=== PATIENT | female | born 1995 | race Two or more races ===

== ENCOUNTER 2019-08-19 19:51 | Emergency (ER) | payer MEDICAID ==
--- NOTE | 2019-08-19 20:07 | EDM.PDOC ---
ED HPI GENERAL MEDICAL PROBLEM - General Chief Complaint: Lower Extremity Injury/Pain Stated Complaint: RIGHT ANKLE INJURY Time Seen by Provider: 08/19/19 19:52 Source of Information: Reports: Patient History Limitations: Reports: No Limitations - History of Present Illness INITIAL COMMENTS - FREE TEXT/NARRATIVE: HISTORY AND PHYSICAL: History of present illness: Patient is a 24-year-old female who presents to the emergency room with complaints of right ankle pain. She was states she was walking down hill when she felt her ankle "give out". She states since the injury she has not been able to weight-bear or ambulate. Denies any numbness, tingling or saddle paresthesia. Denies any weakness of the extremity. Denies any other extremity involvement. Offers no systemic complaints. Review of systems: As per history of present illness and below otherwise all systems reviewed and negative. Past medical history: As per history of present illness and as reviewed below otherwise noncontributory. Surgical history: As per history of present illness and as reviewed below otherwise noncontributory. Social history: See social history for further information Family history: As per history of present illness and as reviewed below otherwise noncontributory. Physical exam: General: Well-developed and well-nourished 24-year-old female. Alert and oriented. Nontoxic-appearing and in no acute distress. HEENT: Atraumatic, normocephalic, pupils equal and reactive bilaterally, negative for conjunctival pallor or scleral icterus, mucous membranes moist, trachea midline. No drooling or trismus noted. No meningeal signs. No hot potato voice noted. Lungs: Clear to auscultation, breath sounds equal bilaterally. Heart: S1S2, regular rate and rhythm without overt murmur Abdomen: Soft, nondistended, nontender. Skin: Intact, warm, dry. No lesions or rashes noted. Extremities: Pain with palpation of the medial and lateral malleolus. Soft tissue swelling noted to the medial ankleMoves all extremities per self without difficulty or deficits, negative for cords or calf pain. Neurovascular unremarkable. Neuro: Awake, alert, oriented. Cranial nerves II through XII unremarkable. Cerebellum unremarkable. Motor and sensory unremarkable throughout. Exam nonfocal. Notes: X-ray shows a trimalleolar fracture with an unstable ankle mortise. Mildly displaced fracture of the fibula. I did discuss x-ray findings and patient with Dr. Ulrich, Ortho on-call. He would like her placed in splint and for the patient to be seen tomorrow in his clinic. I did give this information to the patient. A posterior fiberglass splint was placed so patient could be non- weightbearing for the right lower extremity fracture. We discussed medication and supportive care measures were reviewed and discussed. Voices understanding and is agreeable to plan of care. Denies any further questions or concerns at this time. Diagnostics: X-ray Therapeutics: CAM walker boot and crutches Prescription: [place] Impression: Trimalleolar fracture, right Fibular fracture, right Plan: 1. Rest, ice, elevate the extremity as able. Keep the posterior mold on and do not remove until you follow-up with the orthopedic provider. Please continue to be nonweightbearing and use your crutches when needing to ambulate. 2. Alternate Tylenol and ibuprofen as needed. You can use the [place] for moderate to severe pain. This medication may cause drowsiness so do not take it while driving or needing to be doing outside of the house. 3. Dr Ulrich, orthopedics, would like you to call his office tomorrow to set up an appointment. 4. Return to the ED as needed and as discussed. Definitive disposition and diagnosis as appropriate pending reevaluation and review of above. right ankle Pain Score (Numeric/FACES): 8 - Related Data Allergies Allergy/AdvReac Type Severity Reaction Status Date / Time No Known Allergies Allergy Verified 08/19/19 20:02 Home Meds: Home Meds medroxyPROGESTERone [Depo-Provera Contraceptive] 150 mg IM ONETIME 08/19/19 [ History] Review of Systems - Review of Systems Review Of Systems: Comprehensive ROS is negative, except as noted in HPI. ED EXAM, GENERAL - Physical Exam Exam: See Below (See dictation) Course - Vital Signs Last Recorded V/S: Last Vital Signs Temp 98 F 08/19/19 20:00 Pulse 78 08/19/19 20:00 Resp 18 08/19/19 20:00 BP 136/93 H 08/19/19 20:00 Pulse Ox 98 08/19/19 20:00 - Orders/Labs/Meds Orders: Active Orders 24 hr Category Date Time Status DME for Discharge [COMM] Stat Oth 08/19/19 20:15 Ordered Meds: Medications Discontinued Medications Generic Name Dose Route Start Last Admin Trade Name David PRN Reason Stop Dose Admin Hydrocodone Bitart/Acetaminophen 1 tab 08/19/19 20:15 08/19/19 20:26 [place] 325-5 Mg PO 08/19/19 20:16 1 tab ONETIME ONE Administration Departure - Departure Time of Disposition: 20:38 Disposition: Home, Self-Care 01 Clinical Impression: Trimalleolar fracture of ankle, closed Qualifiers: Encounter type: initial encounter Laterality: right Qualified Code(s): S82.851A - Displaced trimalleolar fracture of right lower leg, initial encounter for closed fracture Fibula fracture Qualifiers: Encounter type: initial encounter Fibula location: distal Fracture type: closed Fracture morphology: other fracture Laterality: right Qualified Code(s): S82.831A - Other fracture of upper and lower end of right fibula, initial encounter for closed fracture - Discharge Information Instructions: Ankle Fracture, [id number] Forms: ED Department Discharge Additional Instructions: The following information is given to patients seen in the emergency department who are being discharged to home. This information is to outline your options for follow-up care. We provide all patients seen in our emergency department with a follow-up referral. The need for follow-up, as well as the timing and circumstances, are variable depending upon the specifics of your emergency department visit. If you don't have a primary care physician on staff, we will provide you with a referral. We always advise you to contact your personal physician following an emergency department visit to inform them of the circumstance of the visit and for follow-up with them and/or the need for any referrals to a consulting specialist. The emergency department will also refer you to a specialist when appropriate. This referral assures that you have the opportunity for follow-up care with a specialist. All of these measure are taken in an effort to provide you with optimal care, which includes your follow-up. Under all circumstances we always encourage you to contact your private physician who remains a resource for coordinating your care. When calling for follow-up care, please make the office aware that this follow-up is from your recent emergency room visit. If for any reason you are refused follow-up, please contact the [facility] Emergency Department at and asked to speak to the emergency department charge nurse. JORGE [facility] Professional [facility] [address] [place] [address], [address] [place] [address] 1. Rest, ice, elevate the extremity as able. Keep the posterior mold on and do not remove until you follow-up with the orthopedic provider. Please continue to be nonweightbearing and use your crutches when needing to ambulate. 2. Alternate Tylenol and ibuprofen as needed. You can use the [place] for moderate to severe pain. This medication may cause drowsiness so do not take it while driving or needing to be doing outside of the house. 3. Dr Ulrich, orthopedics, would like you to call his office tomorrow to set up an appointment. Call at 8am for appointment. 4. Return to the ED as needed and as discussed. Sepsis Event Note - Focused Exam Vital Signs: Vital Signs Temp Pulse Resp BP Pulse Ox 08/19/19 20:00 98 F 78 18 136/93 H 98 Date Exam was Performed: 08/19/19 Time Exam was Performed: 20:26 - My Orders Last 24 Hours: My Active Orders 08/19/19 20:15 DME for Discharge [COMM] Stat - Assessment/Plan Last 24 Hours: My Active Orders 08/19/19 20:15 DME for Discharge [COMM] Stat
[2019-08-19] MEDS ORDERED: Acetaminophen/HYDROcodone 325-5 MG Tab PO ONE (20:15)
--- NOTE | 2019-08-19 20:24 | CR ---
Ankle: 3 views the ankle were obtained. Displaced medial malleolar fracture is noted. Mildly displaced fracture with slight angulation is noted within the distal one third diaphysis of the fibula. Fibular fracture is slightly comminuted. Posterior malleolar fracture is also noted. Ankle mortise is unstable with shifting of the tibia in a medial direction. Impression: 1. Trimalleolar fracture with unstable ankle mortise. Diagnostic code #3 Study was dictated in MDT
== END 2019-08-19 21:15 | disposition home or self-care (01) ==
LOC: MW.ED 19:51
DX: S82.851A Displaced trimalleolar fracture of right lower leg, initial encounter for closed fracture (principal); S82.831A Other fracture of upper and lower end of right fibula, initial encounter for closed fracture; X50.1XXA Overexertion from prolonged static or awkward postures, initial encounter
CPT/HCPCS: 29515; 73610; 99283; A9270

== ENCOUNTER 2019-08-20 15:12 | Day surgery (SDC) | payer MEDICAID ==
[~2019-08-20 15:12] MED LIST: 50% Dextrose in Water 50 ML Syringe IVPUSH PRN; Albuterol 0.083% 2.5 MG/3 ML Neb Soln NEB PRN; Atropine 0.1 MG/ML 10 ML Syringe IVPUSH PRN; EPINEPHrine 1:10,000 1 MG/10 ML Syringe IVPUSH PRN; Lactated Ringers 1,000 ML IV SCH; Lidocaine 2% 5 ML SDV ONE; Midazolam 1 MG/ML 2 ML SDV ONE; Naloxone 0.4 MG/ML Syringe IVPUSH PRN; Ondansetron 4 MG/2 ML SDV ONE; Propofol 200 MG/20 ML SDV ONE; Sodium Chloride 0.9% 10 ML SDV IV PRN; Sodium Chloride 0.9% 10 ML Syringe FLUSH PRN; Sodium Chloride 0.9% 2.5 ML Syringe FLUSH PRN; ceFAZolin 2 GM in Premix Bag 1 BAG IV SCH; fentaNYL 250 MCG/5 ML SDV ONE
[2019-08-20] MEDS ORDERED: Bupivacaine 0.5%/EPINEPHrine 1:200,000 10 ML SDV ONE (15:14)
--- NOTE | 2019-08-20 15:36 | PCM.PREANE ---
Preanesthetic Assessment - Anesthesia/Transfusion/Family Hx Anesthesia History: No Prior Anesthesia Family History of Anesthesia Reaction: No Intubation History: Unknown - Review of Systems General: No Symptoms Pulmonary: No Symptoms Cardiovascular: No Symptoms Gastrointestinal: No Symptoms Neurological: No Symptoms Other: Reports: None - Physical Assessment ASA Class: 1E Mental Status: Alert & Oriented x3 Airway Class: Mallampati = 1 Dentition: Reports: Normal Dentition Thyro-Mental Finger Breadths: 3 Mouth Opening Finger Breadths: 3 ROM/Head Extension: Full Lungs: Clear to Auscultation, Normal Respiratory Effort Cardiovascular: Regular Rate, Regular Rhythm - Allergies Allergies/Adverse Reactions: Allergies Allergy/AdvReac Type Severity Reaction Status Date / Time No Known Allergies Allergy Verified 08/19/19 20:02 - Blood Blood Available: No - Anesthesia Plan Pre-Op Medication Ordered: None - Acknowledgements Anesthesia Type Planned: General Anesthesia Pt an Appropriate Candidate for the Planned Anesthesia: Yes Alternatives and Risks of Anesthesia Discussed w Pt/Guardian: Yes Pt/Guardian Understands and Agrees with Anesthesia Plan: Yes PreAnesthesia Questionnaire HEENT History: Reports: None Cardiovascular History: Reports: None Respiratory History: Reports: None Gastrointestinal History: Reports: None Genitourinary History: Reports: None BOILER WELDER History: Reports: None Musculoskeletal History: Reports: Fracture (rt. ankle at present time) Neurological History: Reports: None Psychiatric History: Reports: None Endocrine/Metabolic History: Reports: Obesity/BMI 30+ Hematologic History: Reports: None Immunologic History: Reports: None Oncologic (Cancer) History: Reports: None Dermatologic History: Reports: None - Infectious Disease History Infectious Disease History: Reports: None - Past Surgical History Head Surgeries/Procedures: Reports: None HEENT Surgical History: Reports: None Cardiovascular Surgical History: Reports: None Respiratory Surgical History: Reports: None GI Surgical History: Reports: None Female Surgical History: Reports: None Male Surgical History: Reports: None Endocrine Surgical History: Reports: None Neurological Surgical History: Reports: None Musculoskeletal Surgical History: Reports: None Oncologic Surgical History: Reports: None Dermatological Surgical History: Reports: None - HOME MEDS Home Medications: Home Meds medroxyPROGESTERone [Depo-Provera Contraceptive] 150 mg IM ONETIME 08/19/19 [ History] - CURRENT (IN HOUSE) MEDS Current Meds: Current Medications Albuterol (Proventil Neb Soln) 2.5 mg NEB ONETIME PRN PRN Reason: Wheezing Atropine Sulfate (Atropine 0.1 Mg/Ml) 0.5 mg IVPUSH ASDIRECTED PRN PRN Reason: Hypo-perfusion Atropine Sulfate (Atropine 0.1 Mg/Ml) 1 mg IVPUSH ASDIRECTED PRN PRN Reason: Hypo-Perfusion Dextrose/Water (Dextrose 50% In Water) 50 ml IVPUSH ASDIRECTED PRN PRN Reason: Hypoglycemia Epinephrine HCl (Epinephrine 1:10,000) 1 mg IVPUSH ASDIRECTED PRN PRN Reason: ACLS Guidelines Fentanyl (Sublimaze) 50 mcg IVPUSH Q5M PRN PRN Reason: Pain Cefazolin Sodium/Dextrose 2 gm (/ Premix) 50 mls @ 100 mls/hr IV ONCALL DELFINA Lactated Ringer's (Ringers, Lactated) 1,000 mls @ 125 mls/hr IV ASDIRECTED DELFINA Naloxone HCl (Narcan) 0.1 mg IVPUSH ASDIRECTED PRN PRN Reason: Respiratory Depression Sodium Chloride (Saline Flush) 10 ml FLUSH ASDIRECTED PRN PRN Reason: Keep Vein Open Sodium Chloride (Saline Flush) 2.5 ml FLUSH ASDIRECTED PRN PRN Reason: Keep Vein Open Sodium Chloride (Normal Saline) 10 ml IV ASDIRECTED PRN PRN Reason: IV Use Discontinued Medications Bupivacaine HCl/Epinephrine Bitart (Marcaine 0.5%/Epinephrine 1:200,000) Confirm Administered Dose 20 ml .ROUTE .STK-MED ONE Stop: 08/20/19 15:15 Fentanyl (Sublimaze) Confirm Administered Dose 250 mcg .ROUTE .STK-MED ONE Stop: 08/20/19 15:13 Lidocaine (Xylocaine-Mpf 2%) Confirm Administered Dose 5 ml .ROUTE .STK-MED ONE Stop: 08/20/19 15:13 Midazolam HCl (Versed 1 Mg/Ml) Confirm Administered Dose 2 mg .ROUTE .STK-MED ONE Stop: 08/20/19 15:13 Ondansetron HCl (Zofran) Confirm Administered Dose 4 mg .ROUTE .STK-MED ONE Stop: 08/20/19 15:13 Propofol (Diprivan 20 Ml) Confirm Administered Dose 200 mg .ROUTE .STK-MED ONE Stop: 08/20/19 15:13
[2019-08-20] MEDS ORDERED: Ketamine 500 mg/10 ML MDV ONE (15:53)
[2019-08-20] MEDS ORDERED: ceFAZolin 1 GM Vial ONE (16:00)
[2019-08-20] MEDS ORDERED: Sodium Chloride 0.9% 20 ML ONE (16:00)
[2019-08-20] MEDS ORDERED: HYDROmorphone 2 MG/ML Syringe ONE (16:09)
[2019-08-20] MEDS ORDERED: ePHEDrine 50 MG/ML SDV ONE (16:27)
[2019-08-20] MEDS ORDERED: fentaNYL 100 MCG/2 ML SDV ONE (16:52)
--- NOTE | 2019-08-20 17:23 | PCM.OPNOTE ---
- General Post-Op/Procedure Note Date of Surgery/Procedure: 08/20/19 Operative Procedure(s): orif right bimalleolar ankle fracture Pre Op Diagnosis: r bimall ankle fx Post-Op Diagnosis: Same Anesthesia Technique: General ET Tube Primary Surgeon: Tez Ulrich EBL in mLs: 25 Complications: None Condition: Good
--- NOTE | 2019-08-20 17:51 | PCM.POSTAN ---
POST ANESTHESIA ASSESSMENT - MENTAL STATUS Mental Status: Alert, Oriented - VITAL SIGNS Vital Signs: Last Vital Signs Temp 36.8 C 08/20/19 17:16 Pulse 112 H 08/20/19 17:46 Resp 19 08/20/19 17:46 BP 118/101 H 08/20/19 17:46 Pulse Ox 95 08/20/19 17:46 - RESPIRATORY Respiratory Status: Respiratory Rate WNL, Airway Patent, O2 Saturation Stable - CARDIOVASCULAR CV Status: Pulse Rate WNL, Blood Pressure Stable - GASTROINTESTINAL GI Status: No Symptoms - PAIN Pain Score: 0 - POST OP HYDRATION Hydration Status: Adequate & Stable - OBSERVATIONS Free Text/Narrative:: No anesthesia problems
[2019-08-20] MEDS ORDERED: Ondansetron 4 MG/2 ML SDV IVPUSH ONE (18:00)
[2019-08-20] MEDS: fentaNYL 100 MCG/2 ML SDV IVPUSH PRN ×2 (18:04→18:10)
[2019-08-20] MEDS ORDERED: Labetalol 100 MG/20 ML MDV ONE (18:06)
[2019-08-20] MEDS ORDERED: Promethazine 25 MG/ML SDV ONE (18:17)
[2019-08-20] MEDS ORDERED: Scopolamine 1.5 MG Transdermal Patch ONE (18:23)
[2019-08-20] MEDS ORDERED: Promethazine 25 MG/ML SDV IM ONE (18:27)
[2019-08-20] MEDS ORDERED: Scopolamine 1.5 MG Transdermal Patch TOP ONE (18:28)
--- NOTE | 2019-08-20 18:50 | OR ---
SURGEON: Tez Ulrich DATE OF PROCEDURE: 08/20/2019 PREOPERATIVE DIAGNOSIS: Right bimalleolar fracture, ankle, closed. POSTOPERATIVE DIAGNOSIS: Right bimalleolar fracture, ankle, closed. PROCEDURE: Open reduction and internal fixation, right bimalleolar ankle fracture. PRIMARY SURGEON: Tez Ulrich DO ANESTHESIA: General endotracheal intubation. FLUID: Lactated Ringer's solution. ESTIMATED BLOOD LOSS: 25 mL. COMPLICATIONS: None. SPECIMEN: None. DISCHARGE DISPOSITION: Stable to PACU. HISTORY AND INDICATIONS FOR THE PROCEDURE: The patient was seen preoperatively in the clinic. Yesterday, she had suffered a right bimalleolar ankle fracture. She was placed into a posterior splint and asked to follow up. We saw her today. Risks and goals of the procedure were explained to the patient. Informed consent was obtained. Preoperative imaging confirmed the above-mentioned diagnosis. DETAILS OF PROCEDURE: The patient was seen preoperatively by myself and the Anesthesia staff in the preoperative holding area where the operative site was marked. She was brought to the operative suite by Anesthesia staff where general anesthesia was administered. All extremities were found to be well padded. A well-padded tourniquet was placed on the right thigh. The right lower extremity was then prepped and draped in a sterile manner. Time-out was called identifying the correct patient, the correct procedure, the correct site, and that antibiotics had been given within appropriate period of time. The right lower extremity was exsanguinated. Tourniquet was raised to 250 mmHg and kept up for 53 minutes after closure. Lateral incision was first made over the fracture site. Bleeding was controlled with Bovie electrocautery during the case. The fracture was identified by blunt dissection. I did remove some soft tissue anteriorly from the distal fragment using a 15 blade. There was a butterfly fragment present and it was nearly transverse through the shafts preventing a good reduction as there was nothing to mata in. I applied a 6-hole plate and then used [place] retractors to hold it in place. I K-wired the plate also to hold it in place. I did two distal screws and then two proximal screws. I had drilled two different sets of holes in order to get this to sit right. I then drilled another proximal hole. I tried doing a third distal hole, but I could not do that, so we had four cortices distally and six proximally, which I thought was adequate fixation. We then christy our attention to the medial malleolus. This had been nicely reduced after reducing the lateral malleolus. I then percutaneously ran two K-wires through the medial malleolus anterior up through the distal tibia. I then overdrilled these and placed two 55 mm screws and hand tightened them. I removed the K-wires. We then took final films. I then closed the lateral incision with a #1 Stratafix followed by skin reji and then reji on the percutaneous medial malleolar side. We then used wet and dry's on the leg and then placed Betadine-soaked Adaptic, fluffs, and an Emmanuel wrap. The patient was allowed to awaken from general anesthesia and taken to the PACU in stable condition. [id number] / MODL /[id number]
--- NOTE | 2019-08-20 18:54 | PCM48HPAN ---
Post Anesthesia Note - EVALUATION WITHIN 48HRS OF ANESTHETIC Vital Signs in Normal Range: Yes Patient Participated in Evaluation: Yes Respiratory Function Stable: Yes Airway Patent: Yes Cardiovascular Function Stable: Yes Hydration Status Stable: Yes Pain Control Satisfactory: Yes Nausea and Vomiting Control Satisfactory: Yes Mental Status Recovered: Yes Vital Signs: Last Vital Signs Temp 36.8 C 08/20/19 17:16 Pulse 73 08/20/19 18:36 Resp 12 08/20/19 18:36 BP 141/99 H 08/20/19 18:36 Pulse Ox 93 L 08/20/19 18:36 - COMMENTS/OBSERVATIONS Free Text/Narrative:: No anesthesia problems
--- NOTE | 2019-08-20 19:23 | CR ---
Right ankle: 4 fluoroscopic spot views were obtained of the right ankle. Study obtained utilizing C-arm device. Comparison: Prior right ankle study of 08/19/19. Findings: Distal fibular shaft fracture is seen which shows reduction. Plate and screws affix the fibular fracture. Medial malleolar fracture shows evidence of 2 cannulated screws with reduction of the fracture. Posterior malleolar fracture is noted. Posterior malleolar fracture appears less displaced than seen on previous study. Ankle mortise has been returned to symmetric. No additional abnormality is seen. Fluoroscopy time: 24.5 seconds Impression: 1. Reduced fractures with orthopedic hardware as described above. Diagnostic code #2 Study was dictated in MDT
[2019-08-20] MEDS ORDERED: Acetaminophen/oxyCODONE 325-5 MG Tab PO ONE (20:30)
== END 2019-08-20 21:00 ==
LOC: MW.SDS 15:12 → MW.MS 19:07 → MW.SDS 21:00
PROVIDERS: ATTEND Orthopaedic Surgery
DX: S82.841A Displaced bimalleolar fracture of right lower leg, initial encounter for closed fracture (principal); W18.40XA Slipping, tripping and stumbling without falling, unspecified, initial encounter
CPT/HCPCS: 27814; 76000; 81025; A9270; C1713; J0690; J1170; J2001; J2250; J2405; J2550; J2704; J3010; J3490; J7120

== ENCOUNTER 2019-08-27 17:01 | Emergency (ER) | payer MEDICAID ==
--- NOTE | 2019-08-27 17:39 | EDM.PDOC ---
ED HPI GENERAL MEDICAL PROBLEM - General Chief Complaint: Genitourinary Problem Stated Complaint: POSSIBLE UTI Time Seen by Provider: 08/27/19 17:37 Source of Information: Reports: Patient History Limitations: Reports: No Limitations - History of Present Illness INITIAL COMMENTS - FREE TEXT/NARRATIVE: HISTORY AND PHYSICAL: History of present illness: Patient is a 24-year-old female presents to the ED for possible UTI. Patient states she started having pain and blood with urination this afternoon. She reports some lower abdominal discomfort. She denies fevers, chills, nausea, vomiting, diarrhea, back pain, vaginal discharge. Review of systems: As per history of present illness and below otherwise all systems reviewed and negative. Past medical history: As per history of present illness and as reviewed below otherwise noncontributory. Surgical history: As per history of present illness and as reviewed below otherwise noncontributory. Social history: No reported history of drug or alcohol abuse. Family history: As per history of present illness and as reviewed below otherwise noncontributory. Physical exam: General: Patient sitting comfortably in no acute distress and nontoxic appearing HEENT: Atraumatic, normocephalic, pupils reactive, negative for conjunctival pallor or scleral icterus, mucous membranes moist, throat clear, neck supple, nontender, trachea midline. No meningeal signs. Extremities: Atraumatic, negative for cords or calf pain. Neurovascular unremarkable. Neuro: Awake, alert, oriented. Cranial nerves II through XII unremarkable. Cerebellum unremarkable. Motor and sensory unremarkable throughout. Exam nonfocal. Notes: Diagnostics: UA Therapeutics: none Prescriptions: Macrobid Impression: UTI Plan: Drink plenty of fluids and take antibiotic as directed. Follow up with primary care provider Return to ED as needed as discussed Definitive disposition and diagnosis as appropriate pending reevaluation and review of above. 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 Musculoskeletal History: Reports: Fracture Other Musculoskeletal History: R trimaleolar fracture Neurological History: Reports: None Psychiatric History: Reports: None Endocrine/Metabolic History: Reports: Obesity/BMI 30+ Insulin Pump Model and Hands And Dial Inspector: N/A Hematologic History: Reports: None Immunologic History: Reports: None Oncologic (Cancer) History: Reports: None Dermatologic History: Reports: None - Infectious Disease History Infectious Disease History: Reports: None - Past Surgical History Head Surgeries/Procedures: Reports: None HEENT Surgical History: Reports: None Cardiovascular Surgical History: Reports: None Respiratory Surgical History: Reports: None GI Surgical History: Reports: None Female Surgical History: Reports: None Endocrine Surgical History: Reports: None Neurological Surgical History: Reports: None Musculoskeletal Surgical History: Reports: None Oncologic Surgical History: Reports: None Dermatological Surgical History: Reports: None Social & Family History - Family History Family Medical History: Noncontributory - Tobacco Use Smoking Status *Q: Never Smoker - Caffeine Use Caffeine Use: Reports: Coffee - Recreational Drug Use Recreational Drug Use: No ED ROS GENERAL - Review of Systems Review Of Systems: Comprehensive ROS is negative, except as noted in HPI. ED EXAM, RENAL/ - Physical Exam Exam: See Below (see dictation) Course - Vital Signs Last Recorded V/S: Last Vital Signs Temp 97.7 F 08/27/19 17:14 Pulse 108 H 08/27/19 17:14 Resp 18 08/27/19 17:14 BP 138/72 08/27/19 17:14 Pulse Ox 98 08/27/19 17:14 - Orders/Labs/Meds Orders: Active Orders 24 hr Category Date Time Status CULTURE URINE [RM] Stat Lab 08/27/19 17:12 Received Labs: Laboratory Tests 08/27/19 Range/Units 17:12 Urine Color YELLOW Urine Appearance SLT CLOUDY Urine pH 6.0 (5.0-8.0) Ur Specific [place] >= 1.030 (1.001-1.035) Urine Protein 30 H (NEGATIVE) mg/dL Urine Glucose (UA) NEGATIVE (NEGATIVE) mg/dL Urine Ketones 15 H (NEGATIVE) mg/dL Urine Occult Blood LARGE H (NEGATIVE) Urine Nitrite NEGATIVE (NEGATIVE) Urine Bilirubin NEGATIVE (NEGATIVE) Urine Urobilinogen 0.2 (<2.0) EU/dL Ur Leukocyte Esterase TRACE H (NEGATIVE) Urine RBC 0-4 (0-2/HPF) Urine WBC 4-8 (0-5/HPF) Ur Epithelial Cells FEW (NONE-FEW) Amorphous Sediment FEW (NEGATIVE) Urine Bacteria 1+ H (NEGATIVE) Urine Mucus FEW (NONE-MOD) Departure - Departure Time of Disposition: 18:19 Disposition: Home, Self-Care 01 Condition: Good Clinical Impression: UTI (urinary tract infection) - Discharge Information Forms: ED Department Discharge Care Plan Goals: The following information is given to patients seen in the emergency department who are being discharged to home. This information is to outline your options for follow-up care. We provide all patients seen in our emergency department with a follow-up referral. The need for follow-up, as well as the timing and circumstances, are variable depending upon the specifics of your emergency department visit. If you don't have a primary care physician on staff, we will provide you with a referral. We always advise you to contact your personal physician following an emergency department visit to inform them of the circumstance of the visit and for follow-up with them and/or the need for any referrals to a consulting specialist. The emergency department will also refer you to a specialist when appropriate. This referral assures that you have the opportunity for follow-up care with a specialist. All of these measure are taken in an effort to provide you with optimal care, which includes your follow-up. Under all circumstances we always encourage you to contact your private physician who remains a resource for coordinating your care. When calling for follow-up care, please make the office aware that this follow-up is from your recent emergency room visit. If for any reason you are refused follow-up, please contact the [facility] Emergency Department at and asked to speak to the emergency department charge nurse. [facility] [address] [place] [id number] [address] Drink plenty of fluids and take antibiotic as directed. Follow up with primary care provider Return to ED as needed as discussed Sepsis Event Note - Evaluation Sepsis Screening Result: No Definite Risk - Focused Exam Vital Signs: Vital Signs Temp Pulse Resp BP Pulse Ox 08/27/19 17:14 97.7 F 108 H 18 138/72 98 Date Exam was Performed: 08/27/19 Time Exam was Performed: 18:19 - My Orders Last 24 Hours: My Active Orders 08/27/19 17:12 CULTURE URINE [RM] Stat - Assessment/Plan Last 24 Hours: My Active Orders 08/27/19 17:12 CULTURE URINE [RM] Stat
== END 2019-08-27 18:29 | disposition home or self-care (01) ==
LOC: MW.ED 17:01
DX: N39.0 Urinary tract infection, site not specified (principal); E66.9 Obesity, unspecified; Z68.33 Body mass index [BMI] 33.0-33.9, adult
CPT/HCPCS: 81001; 87086; 99282; 99284

== ENCOUNTER 2019-10-11 13:05 | Emergency (ER) | payer MEDICAID ==
--- NOTE | 2019-10-11 13:30 | EDM.PDOC ---
ED HPI GENERAL MEDICAL PROBLEM - General Chief Complaint: Lower Extremity Injury/Pain Stated Complaint: BUMP ON SURGICAL SCAR Time Seen by Provider: 10/11/19 13:23 Source of Information: Reports: Patient History Limitations: Reports: No Limitations - History of Present Illness INITIAL COMMENTS - FREE TEXT/NARRATIVE: HISTORY AND PHYSICAL: History of present illness: Patient is a 24-year-old female who presents to the emergency room with concerns of possible infection/drainage from her incision site. Approximately 7 weeks ago she had right ankle surgery for fracture, does have a lateral incision along the right ankle. She has had no postoperative complications. Yesterday she noticed a small pustule in the center of her scar and states that her sock must have rubbed on it and "popped it". She does have some mild erythema at the site. She denies any new injury, trauma or falls. Patient denies any fever, chills, headache, change in vision, syncope or near syncope. Denies any chest pain, back pain, shortness of breath or cough. Denies any numbness, tingling or saddle paresthesia. Denies any GI or symptoms. Patient has been eating and drinking appropriately. Review of systems: As per history of present illness and below otherwise all systems reviewed and negative. Past medical history: As per history of present illness and as reviewed below otherwise noncontributory. Surgical history: As per history of present illness and as reviewed below otherwise noncontributory. Social history: See social history for further information Family history: As per history of present illness and as reviewed below otherwise noncontributory. Physical exam: General: Well-developed and well-nourished 24-year-old female. Alert and oriented. Nontoxic-appearing and in no acute distress. HEENT: Atraumatic, normocephalic, pupils equal and reactive bilaterally, negative for conjunctival pallor or scleral icterus, mucous membranes moist, TMs normal bilaterally, throat clear, neck supple, nontender, trachea midline. No drooling or trismus noted. No meningeal signs. No hot potato voice noted. Lungs: Clear to auscultation, breath sounds equal bilaterally, chest nontender. Heart: S1S2, regular rate and rhythm without overt murmur Skin: Well approximated linear scar to the right lateral ankle. Small area of erythema along the mid scar line without any fluctuance or induration. Slightly warm to the touch. Otherwise remaining skin is intact, warm, dry. No lesions or rashes noted. Extremities: Atraumatic, moves all extremities per self without difficulty or deficits, negative for cords or calf pain. Neurovascular unremarkable. Neuro: Awake, alert, oriented. Cranial nerves II through XII unremarkable. Cerebellum unremarkable. Motor and sensory unremarkable throughout. Exam nonfocal. Notes: The area in question is very superficial, do not have any concern of an abscess or cellulitis. We discussed what to monitor for at home along with what would prompt her to return to the emergency department. Will place her on a short course of antibiotic. Supportive care measures were reviewed and discussed. Voices understanding and is agreeable to plan of care. Denies any further questions or concerns at this time. Diagnostics: None Therapeutics: None Prescription: Keflex Impression: Localized skin infection Plan: 1. Keep the area clean and dry. Continue to monitor for signs of infection. Take the antibiotic as prescribed 2. Tylenol and/or ibuprofen as needed for pain management. 3. Please follow-up with your primary care provider in the next 1-2 days. Return to the ED as needed and as discussed. Definitive disposition and diagnosis as appropriate pending reevaluation and review of above. - Related Data Allergies Allergy/AdvReac Type Severity Reaction Status Date / Time No Known Allergies Allergy Verified 08/27/19 17:19 Home Meds: Home Meds cephALEXin [Keflex] 500 mg PO BID 5 Days #10 cap 10/11/19 [Rx] Past Medical History HEENT History: Reports: None Cardiovascular History: Reports: None Respiratory History: Reports: None Gastrointestinal History: Reports: None Genitourinary History: Reports: None TUBE BUFFER History: Reports: None Musculoskeletal History: Reports: Fracture Other Musculoskeletal History: R trimaleolar fracture Neurological History: Reports: None Psychiatric History: Reports: None Endocrine/Metabolic History: Reports: Obesity/BMI 30+ 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/A Hematologic History: Reports: None Immunologic History: Reports: None Oncologic (Cancer) History: Reports: None Dermatologic History: Reports: None - Infectious Disease History Infectious Disease History: Reports: None - Past Surgical History Head Surgeries/Procedures: Reports: None HEENT Surgical History: Reports: None Cardiovascular Surgical History: Reports: None Respiratory Surgical History: Reports: None GI Surgical History: Reports: None Female Surgical History: Reports: None Endocrine Surgical History: Reports: None Neurological Surgical History: Reports: None Musculoskeletal Surgical History: Reports: None Oncologic Surgical History: Reports: None Dermatological Surgical History: Reports: None Social & Family History - Family History Family Medical History: Noncontributory - Tobacco Use Smoking Status *Q: Never Smoker Second Hand Smoke Exposure: No - Caffeine Use Caffeine Use: Reports: None - Recreational Drug Use Recreational Drug Use: No Review of Systems - Review of Systems Review Of Systems: Comprehensive ROS is negative, except as noted in HPI. ED EXAM, GENERAL - Physical Exam Exam: See Below (See dictation) Course - Vital Signs Last Recorded V/S: Last Vital Signs Temp 97.7 F 10/11/19 13:12 Pulse 117 H 10/11/19 13:12 Resp 18 10/11/19 13:12 BP 151/83 H 10/11/19 13:12 Pulse Ox 99 10/11/19 13:12 Departure - Departure Time of Disposition: 13:29 Disposition: Home, Self-Care 01 Clinical Impression: Localized infection of skin - Discharge Information Prescriptions: cephALEXin [Keflex] 500 mg PO BID 5 Days #10 cap Instructions: Wound Care, Adult Referrals: PCP,None [Primary Care Provider] - Forms: ED Department Discharge Additional Instructions: The following information is given to patients seen in the emergency department who are being discharged to home. This information is to outline your options for follow-up care. We provide all patients seen in our emergency department with a follow-up referral. The need for follow-up, as well as the timing and circumstances, are variable depending upon the specifics of your emergency department visit. If you don't have a primary care physician on staff, we will provide you with a referral. We always advise you to contact your personal physician following an emergency department visit to inform them of the circumstance of the visit and for follow-up with them and/or the need for any referrals to a consulting specialist. The emergency department will also refer you to a specialist when appropriate. This referral assures that you have the opportunity for follow-up care with a specialist. All of these measure are taken in an effort to provide you with optimal care, which includes your follow-up. Under all circumstances we always encourage you to contact your private physician who remains a resource for coordinating your care. When calling for follow-up care, please make the office aware that this follow-up is from your recent emergency room visit. If for any reason you are refused follow-up, please contact the [facility] Emergency Department at and asked to speak to the emergency department charge nurse. [facility] [address] [place] [address] [address] 1. Keep the area clean and dry. Continue to monitor for signs of infection. Take the antibiotic as prescribed 2. Tylenol and/or ibuprofen as needed for pain management. 3. Please follow-up with your primary care provider in the next 1-2 days. Return to the ED as needed and as discussed. Sepsis Event Note - Evaluation Sepsis Screening Result: No Definite Risk - Focused Exam Vital Signs: Vital Signs Temp Pulse Resp BP Pulse Ox 10/11/19 13:12 97.7 F 117 H 18 151/83 H 99 Date Exam was Performed: 10/11/19 Time Exam was Performed: 13:30
== END 2019-10-11 13:44 | disposition home or self-care (01) ==
LOC: MW.ED 13:05
DX: L08.9 Local infection of the skin and subcutaneous tissue, unspecified (principal); E66.9 Obesity, unspecified; Z68.32 Body mass index [BMI] 32.0-32.9, adult; Z79.899 Other long term (current) drug therapy
CPT/HCPCS: 99282; 99283

== ENCOUNTER 2019-10-18 11:36 | Emergency (ER) | payer MEDICAID ==
[2019-10-18] MEDS ORDERED: Cephalexin 500 MG Cap PO ONE (11:59)
--- NOTE | 2019-10-18 12:04 | EDM.PDOC ---
ED HPI GENERAL MEDICAL PROBLEM - General Chief Complaint: Skin Complaint Stated Complaint: BLOOD AND PUS COMING OUT OF SCAR Time Seen by Provider: 10/18/19 11:41 - History of Present Illness INITIAL COMMENTS - FREE TEXT/NARRATIVE: History of present illness: 24-year-old female presenting with concern for possible infection at right lower ankle incision site. Had a bimalleolar ankle fracture with ORIF in August 2019. Had been doing well until 1 week ago when she noticed the lateral incision site opened up and started bleeding. She was seen here in the emergency department at that time and started on Keflex, which was prescribed for 5 days in which she completed, however today she noticed what she was concerned might be pus coming from the wound. She shows me a picture of what came out of the wound and it appears more consistent with serosanguineous drainage. She has not had any fevers nor any worsening of pain in the ankle or at the site of the incision. Review of systems: As per history of present illness and below otherwise all systems reviewed and negative. Past medical history: As per history of present illness and as reviewed below otherwise noncontributory. Surgical history: As per history of present illness and as reviewed below otherwise noncontributory. ORIF bimalleolar ankle fracture Social history: No reported history of drug or alcohol abuse. Family history: As per history of present illness and as reviewed below otherwise noncontributory. Physical exam: GEN: no acute distress, well appearing HEENT: Atraumatic, normocephalic, mucous membranes moist, Neck: supple, nontender, trachea midline. Lungs: No respiratory distress. Heart: RRR Abdomen: Soft, nondistended, nontender. Back: nontender Extremities: Atraumatic. Healing incision site with mild dehiscence at the right lateral ankle. Ankle nontender. Neurovascularly intact. Neuro: Awake, alert, oriented. Neuro Exam nonfocal. Skin: warm, dry, no lesions. In the lateral incision site, mid incision, there is an area of wound dehiscence less than 1 cm long which has some very mild serosanguineous drainage without signs of infection. However there is some very mild erythema over the margins of the incision site at this level. Psych: Patient appears very anxious, she reports she is always anxious when she is with any healthcare provider or in the hospital Diagnostics: [] Therapeutics: [] MDM: Possible very mild wound site infection, status post 5 days of Keflex. Will extend course to additional 5 days to complete a 10-day total course. Had been taking 500 mg twice daily, will increase to 1000 mg twice daily. Impression: [] Plan: [] Definitive disposition and diagnosis as appropriate pending reevaluation and review of above. - Related Data Allergies Allergy/AdvReac Type Severity Reaction Status Date / Time No Known Allergies Allergy Verified 10/18/19 11:52 Home Meds: Home Meds cephALEXin [Keflex] 1,000 mg PO BID #20 cap 10/18/19 [Rx] Past Medical History HEENT History: Reports: None Cardiovascular History: Reports: None Respiratory History: Reports: None Gastrointestinal History: Reports: None Genitourinary History: Reports: None MANAGER SHIP History: Reports: None Musculoskeletal History: Reports: Fracture Other Musculoskeletal History: R trimaleolar fracture Neurological History: Reports: None Psychiatric History: Reports: None Endocrine/Metabolic History: Reports: Obesity/BMI 30+ Insulin Pump Model 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 Derrick Car 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: N/A Hematologic History: Reports: None Immunologic History: Reports: None Oncologic (Cancer) History: Reports: None Dermatologic History: Reports: None - Infectious Disease History Infectious Disease History: Reports: None - Past Surgical History Head Surgeries/Procedures: Reports: None HEENT Surgical History: Reports: None Cardiovascular Surgical History: Reports: None Respiratory Surgical History: Reports: None GI Surgical History: Reports: None Female Surgical History: Reports: None Endocrine Surgical History: Reports: None Neurological Surgical History: Reports: None Musculoskeletal Surgical History: Reports: None Oncologic Surgical History: Reports: None Dermatological Surgical History: Reports: None Social & Family History - Family History Family Medical History: Noncontributory - Caffeine Use Caffeine Use: Reports: None ED ROS GENERAL - Review of Systems Review Of Systems: See Below (See dictation) ED EXAM, SKIN/RASH Exam: See Below (See dictation) Course - Vital Signs Last Recorded V/S: Last Vital Signs Temp 97.6 F 10/18/19 11:52 Pulse 95 10/18/19 11:52 Resp 18 10/18/19 11:52 BP 149/97 H 10/18/19 11:52 Pulse Ox 96 10/18/19 11:52 - Orders/Labs/Meds Meds: Medications Discontinued Medications Generic Name Dose Route Start Last Admin Trade Name Freq PRN Reason Stop Dose Admin Cephalexin 1,000 mg 10/18/19 11:59 10/18/19 12:07 Keflex PO 10/18/19 12:00 1,000 mg ONETIME ONE Administration - Re-Assessments/Exams Free Text/Narrative Re-Assessment/Exam: 10/18/19 12:42 She is in no acute distress. The wound was checked again, there is no worsening of the wound. Patient reports she is feeling more calm and at ease. Her heart rate is in the 90s. Discussed plan of care, including 5 more days of Keflex, and follow-up with the orthopedic surgeon, Dr. Ulrich soon as possible. Departure - Departure Time of Disposition: 12:43 Disposition: Home, Self-Care 01 Clinical Impression: Wound dehiscence, surgical Qualifiers: Encounter type: subsequent encounter Qualified Code(s): T81.31XD - Disruption of external operation (surgical) wound, not elsewhere classified, subsequent encounter - Discharge Information Prescriptions: cephALEXin [Keflex] 1,000 mg PO BID #20 cap Instructions: Wound Dehiscence, [id number] Referrals: PCP,Aubrie [Primary Care Provider] - Tez Ulrich DO [Physician] - Forms: ED Department Discharge Additional Instructions: The following information is given to patients seen in the emergency department who are being discharged to home. This information is to outline your options for follow-up care. We provide all patients seen in our emergency department with a follow-up referral. The need for follow-up, as well as the timing and circumstances, are variable depending upon the specifics of your emergency department visit. If you don't have a primary care physician on staff, we will provide you with a referral. We always advise you to contact your personal physician following an emergency department visit to inform them of the circumstance of the visit and for follow-up with them and/or the need for any referrals to a consulting specialist. The emergency department will also refer you to a specialist when appropriate. This referral assures that you have the opportunity for follow-up care with a specialist. All of these measure are taken in an effort to provide you with optimal care, which includes your follow-up. Under all circumstances we always encourage you to contact your private physician who remains a resource for coordinating your care. When calling for follow-up care, please make the office aware that this follow-up is from your recent emergency room visit. If for any reason you are refused follow-up, please contact the [facility] Emergency Department at and asked to speak to the emergency department charge nurse. Sepsis Event Note (ED) - Evaluation Sepsis Screening Result: No Definite Risk - Focused Exam Vital Signs: Vital Signs Temp Pulse Resp BP Pulse Ox 10/18/19 11:52 97.6 F 95 18 149/97 H 96
== END 2019-10-18 12:56 | disposition home or self-care (01) ==
LOC: MW.ED 11:36
DX: T81.31XA Disruption of external operation (surgical) wound, not elsewhere classified, initial encounter (principal); E66.9 Obesity, unspecified; Z68.32 Body mass index [BMI] 32.0-32.9, adult
CPT/HCPCS: 99283; A9270

== ENCOUNTER 2020-01-24 21:01 | Emergency (ER) | payer MEDICAID ==
[2020-01-24] MEDS ORDERED: Amoxicillin/Clavulanate K 875-125 MG Tab PO ONE (22:39)
[2020-01-24] MEDS ORDERED: Ibuprofen 800 MG Tab PO ONE (22:41)
--- NOTE | 2020-01-24 22:44 | EDM.PDOC ---
ED HPI GENERAL MEDICAL PROBLEM - General Chief Complaint: ENT Problem Stated Complaint: TOOTH PAIN Time Seen by Provider: 01/24/20 21:20 Source of Information: Reports: Patient History Limitations: Reports: No Limitations - History of Present Illness INITIAL COMMENTS - FREE TEXT/NARRATIVE: History of present illness: [Patient is 24-year-old female who presents with right upper tooth pain that she noticed earlier today. She tried taking Tylenol to help with the pain, this provided minimal relief, she is worried that maybe she is developing an infection in the tooth. Her friend told her to come in and get checked out. Denies history of recurrent tooth infections, denies any trauma to the tooth, denies fever or chills, denies trouble swallowing or breathing, reports feeling anxious because she had hardware put in her right ankle for injury that she had and she does not want bacteremia to infected hardware coming from her tooth.] Review of systems: As per history of present illness and below otherwise all systems reviewed and negative. Past medical history: As per history of present illness and as reviewed below otherwise noncontributory. Surgical history: As per history of present illness and as reviewed below otherwise noncontributory. Social history: No reported history of drug or alcohol abuse. Family history: As per history of present illness and as reviewed below otherwise noncontributory. Physical exam: General: Awake, alert, no acute distress, A&O X3, anxious HEENT: Atraumatic, normocephalic, pupils reactive, negative for conjunctival p allor or scleral icterus, mucous membranes moist, throat clear, neck supple, nontender, trachea midline. No obvious drainable abscess, no overlying erythema involving the face, no significant swelling of the lips tongue or throat, no stridor, no significant lymphadenopathy, relatively benign exam Lungs: Clear to auscultation, breath sounds equal bilaterally, chest nontender. Heart: tachycardic, normal S1S2, no JVD. Abdomen: Soft, nondistended, nontender. Negative for masses or hepatosplenomegaly. Negative for costovertebral tenderness. Pelvis: Stable nontender. Genitourinary: Deferred. Rectal: Deferred. Extremities: Atraumatic, no edema, Neurovascular unremarkable. Neuro: Motor and sensory grossly intact throughout. Exam nonfocal. Diagnostics: [] Therapeutics: [] Impression: [] Plan: [] Definitive disposition and diagnosis as appropriate pending reevaluation and review of above. Right Upper Oral/Mouth Pain Score (Numeric/FACES): 7 - Related Data Allergies Allergy/AdvReac Type Severity Reaction Status Date / Time No Known Allergies Allergy Verified 01/24/20 21:58 Home Meds: Home Meds Penicillin V Potassium 500 mg PO Q6HR #40 tab 01/24/20 [Rx] Past Medical History HEENT History: Reports: None Cardiovascular History: Reports: None Respiratory History: Reports: None Gastrointestinal History: Reports: None Genitourinary History: Reports: None HEALTH AND SAFETY MANAGER History: Reports: None Musculoskeletal History: Reports: Fracture Other Musculoskeletal History: R trimaleolar fracture Neurological History: Reports: None Psychiatric History: Reports: None Endocrine/Metabolic History: Reports: Obesity/BMI 30+ Insulin Pump Model 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: N/A Hematologic History: Reports: None Immunologic History: Reports: None Oncologic (Cancer) History: Reports: None Dermatologic History: Reports: None - Infectious Disease History Infectious Disease History: Reports: None - Past Surgical History Head Surgeries/Procedures: Reports: None HEENT Surgical History: Reports: None Cardiovascular Surgical History: Reports: None Respiratory Surgical History: Reports: None GI Surgical History: Reports: None Female Surgical History: Reports: None Endocrine Surgical History: Reports: None Neurological Surgical History: Reports: None Musculoskeletal Surgical History: Reports: None Oncologic Surgical History: Reports: None Dermatological Surgical History: Reports: None Social & Family History - Family History Family Medical History: Noncontributory - Caffeine Use Caffeine Use: Reports: None ED ROS ENT - Review of Systems Review Of Systems: Comprehensive ROS is negative, except as noted in HPI. ED EXAM, ENT - Physical Exam Exam: See Below (see h and p) Course - Vital Signs Text/Narrative:: Gave patient ibuprofen and antibiotics here and sent prescription electronically for her to use antibiotics for the next 10 days, encourage follow-up with dentist, return precautions provided, otherwise she was well-appearing, tolerating oral secretions, no stridor, no distress, she is mildly tachycardic, but I believe this is related to her anxiety over her concern about the spread of potential bacteria. I placated her fears, told her the antibiotic should help clear things up but ultimately she should follow-up with a dentist for definitive management. Last Recorded V/S: Last Vital Signs Temp 35.9 C L 01/24/20 21:55 Pulse 128 H 01/24/20 21:55 Resp 14 01/24/20 21:55 BP 163/89 H 01/24/20 21:55 Pulse Ox 99 01/24/20 21:55 - Orders/Labs/Meds Meds: Medications Discontinued Medications Generic Name Dose Route Start Last Admin Trade Name David PRN Reason Stop Dose Admin Amoxicillin/Clavulanate Potassium 1 tab 01/24/20 22:39 Augmentin 875 Mg/125 Mg PO 01/24/20 22:40 ONETIME ONE Ibuprofen 800 mg 01/24/20 22:41 Motrin PO 01/24/20 22:42 ONETIME ONE Departure - Departure Time of Disposition: 22:44 Disposition: Home, Self-Care 01 Condition: Good Clinical Impression: Pain, dental - Discharge Information Prescriptions: Penicillin V Potassium 500 mg PO Q6HR #40 tab Referrals: PCP,None [Primary Care Provider] - Forms: ED Department Discharge Additional Instructions: Follow-up with dentist. Take all medications as prescribed. Return to the ER with any new or worsening symptoms. The following information is given to patients seen in the emergency department who are being discharged to home. This information is to outline your options for follow-up care. We provide all patients seen in our emergency department with a follow-up referral. The need for follow-up, as well as the timing and circumstances, are variable depending upon the specifics of your emergency department visit. If you don't have a primary care physician on staff, we will provide you with a referral. We always advise you to contact your personal physician following an emergency department visit to inform them of the circumstance of the visit and for follow-up with them and/or the need for any referrals to a consulting specialist. The emergency department will also refer you to a specialist when appropriate. This referral assures that you have the opportunity for follow-up care with a specialist. All of these measure are taken in an effort to provide you with optimal care, which includes your follow-up. Under all circumstances we always encourage you to contact your private physician who remains a resource for coordinating your care. When calling for follow-up care, please make the office aware that this follow-up is from your recent emergency room visit. If for any reason you are refused follow-up, please contact the [facility] Emergency Department at and asked to speak to the emergency department charge nurse. Sepsis Event Note (ED) - Evaluation Sepsis Screening Result: No Definite Risk - Focused Exam Vital Signs: Vital Signs Temp Pulse Resp BP Pulse Ox 01/24/20 21:55 35.9 C L 128 H 14 163/89 H 99
== END 2020-01-24 23:08 | disposition home or self-care (01) ==
LOC: MW.ED 21:01
DX: K08.89 Other specified disorders of teeth and supporting structures (principal); E66.9 Obesity, unspecified; Z68.34 Body mass index [BMI] 34.0-34.9, adult
CPT/HCPCS: 99282; A9270